=== PATIENT | male | born 1975 | race Caucasian/White ===

== ENCOUNTER 2018-12-23 07:01 | Outpatient (CLI) | payer OTHER, SELFPAY ==
[2018-12-23 08:29] LABS: ALT 33 U/L (16-63); AST 16 U/L (15-37); Albumin 4.2 g/dL (3.4-5.0); Alkaline Phosphatase 52 U/L (46-116); BUN 20 mg/dL (7-18); Bilirubin, Total 0.6 mg/dL (0.2-1.0); CREATININE 0.99 mg/dL (0.70-1.30); Calcium 9.6 mg/dL (8.5-10.1); Calculated LDL 166 mg/dL; Chloride 103 mmol/L (98-107); Cholesterol 226 mg/dL (50-200); Glucose 102 mg/dL (70-100); HDL Cholesterol 45 mg/dL (40-60); Potassium 4.5 mmol/L (3.5-5.1); Sodium 140 mmol/L (136-145); Total Protein 7.7 g/dL (6.4-8.2); Triglyceride 78 mg/dL (30-150)
== END 2018-12-23 07:21 ==
PROVIDERS: PCP Nurse Practitioner; Visit Provider Nurse Practitioner
DX: I10 Essential (primary) hypertension (principal)
CPT/HCPCS: 36415; 80053; 80061

== ENCOUNTER 2020-05-13 01:44 | Outpatient (CLI) | payer BC, SELFPAY ==
[2020-05-13 12:44] LABS: ALT 46 U/L (16-63); AST 28 U/L (15-37); Albumin 4.5 g/dL (3.4-5.0); Alkaline Phosphatase 50 U/L (46-116); Anion Gap 6.3 mmol/L (3-11); BUN 13 mg/dL (7-18); Bilirubin, Total 1.5 mg/dL (0.2-1.0); CO2 28.7 mmol/L (21.0-32.0); CREATININE 1.1 mg/dL (0.70-1.30); Calcium 9.5 mg/dL (8.5-10.1); Calculated LDL 171 mg/dL (<100); Chloride 101 mmol/L (98-107); Cholesterol 238 mg/dL (<200); Glucose 96 mg/dL (74-106); HDL Cholesterol 48 mg/dL (40-60); Potassium 4.1 mmol/L (3.5-5.1); Sodium 136 mmol/L (136-145); Total Protein 8.2 g/dL (6.4-8.2); Triglyceride 96 mg/dL (<150)
== END 2020-05-13 01:45 | disposition home or self-care (01) ==
LOC: LOS 01:44
PROVIDERS: PCP Nurse Practitioner; Visit Provider Nurse Practitioner
DX: I10 Essential (primary) hypertension (principal)
CPT/HCPCS: 36415; 80053; 80061

== ENCOUNTER 2020-07-28 07:23 | Outpatient (CLI) | payer BC, SELFPAY ==
[2020-07-28 11:34] LABS: Bilirubin, Total 1.2 mg/dL (0.2-1.0)
== END 2020-07-28 07:24 | disposition home or self-care (01) ==
PROVIDERS: Nurse Practitioner Adult Health; PCP Nurse Practitioner; Visit Provider Nurse Practitioner
DX: E80.6 Other disorders of bilirubin metabolism (principal)
CPT/HCPCS: 36415; 82247

== ENCOUNTER 2021-04-05 02:23 | Outpatient (CLI) | payer BC, SELFPAY ==
[2021-04-05 08:28] LABS: HCT 47.6 % (40.0-50.0); HGB 15.7 g/dL (13.5-17.5); MCH 28.3 pg (27.0-33.0); MCV 85.9 fL (80-95); MPV 9.9 fL (8.0-11.0); Platelet Count 251 10^3/uL (130-400); RBC 5.54 10^6/uL (4.36-5.78); RDW 12.7 % (11.8-14.1); RDW-SD 39.6 fL; WBC 6.11 10^3/uL (4.4-10.8)
[2021-04-05 09:12] LABS: ALT 39 U/L (16-63); AST 20 U/L (15-37); Alkaline Phosphatase 50 U/L (46-116); Anion Gap 8.1 mmol/L (3-11); BUN 12 mg/dL (7-18); Bilirubin, Total 1.1 mg/dL (0.2-1.0); CO2 28.9 mmol/L (21.0-32.0); CREATININE 0.9 mg/dL (0.70-1.30); Calcium 9.1 mg/dL (8.5-10.1); Calculated LDL 165 mg/dL (<100); Chloride 102 mmol/L (98-107); Cholesterol 235 mg/dL (<200); Glucose 96 mg/dL (74-106); HDL Cholesterol 54 mg/dL (40-60); Potassium 4.5 mmol/L (3.5-5.1); Sodium 139 mmol/L (136-145); Total Protein 7.5 g/dL (6.4-8.2); Triglyceride 84 mg/dL (<150)
[2021-04-05 09:16] LABS: Hemoglobin A1C 5.8 % (<5.7)
== END 2021-04-05 02:24 | disposition home or self-care (01) ==
LOC: LBO 02:23
PROVIDERS: PCP Nurse Practitioner; Visit Provider Nurse Practitioner
DX: E66.9 Obesity, unspecified (principal); E78.5 Hyperlipidemia, unspecified; I10 Essential (primary) hypertension; Z00.00 Encounter for general adult medical examination without abnormal findings
CPT/HCPCS: 36415; 80053; 80061; 85027; 83036

== ENCOUNTER 2021-07-05 02:50 | Outpatient (CLI) | payer BC, SELFPAY ==
[2021-07-05 13:12] LABS: Bilirubin, Direct 0.2 mg/dL (0.0-0.2); Calculated LDL 167 mg/dL (<100); Cholesterol 239 mg/dL (<200); HDL Cholesterol 53 mg/dL (40-60); Triglyceride 97 mg/dL (<150)
[2021-07-05 13:16] LABS: Hemoglobin A1C 5.7 % (<5.7)
== END 2021-07-05 02:51 | disposition home or self-care (01) ==
LOC: LOS 03:17
PROVIDERS: PCP Nurse Practitioner; Visit Provider Nurse Practitioner
DX: R73.09 Other abnormal glucose (principal); E78.5 Hyperlipidemia, unspecified; R17 Unspecified jaundice
CPT/HCPCS: 36415; 80061; 82248; 83036

== ENCOUNTER 2022-03-12 11:15 | Day surgery (SDC) | payer BC, SELFPAY ==
[2022-03-12 11:20] VITALS: BP 153/117; PULSE 91; RESP 18; TEMP 36.3; O2SAT 98
[2022-03-12] MEDS: Lactated Ringers 1,000 ML 80 ML IV (12:04)
[2022-03-12 12:05] VITALS: BP 135/87
--- NOTE | 2022-03-12 12:10 | W.ANESPRE ---
General Info Date of Service Date Performed: 03/12/22 Height: 5 ft 8 in Weight: 120.656 kg Body Mass Index (BMI): 40.4 Surgical Procedure: Operation Date: 03/12/22 12:05 Proposed Procedure Side Surgeon romina Arroyo MD Meds Allergies and Home Medications Allergies Allergy/AdvReac Type Severity Reaction Status Date / Time No Known Allergies Allergy Verified 03/12/22 11:55 Home Medication Medication Instructions Recorded lisinopril 20 mg tablet 20 mg PO DAILY #90 tabs 01/15/22 bisacodyl 5 mg tablet,delayed 5 mg PO ONCE #4 tabs 03/01/22 release (Dulcolax (bisacodyl)) polyethylene glycol 3350 17 17 g PO ONCE #238 grams 03/01/22 gram/dose oral powder Current Visit Medications: Current Medications Generic Name Dose Route Start Last Admin Trade Name Freq PRN Reason Stop Dose Admin Ringer's Solution 1,000 mls @ 80 mls/hr 03/12/22 06:00 03/12/22 12:04 IV 04/08/22 23:59 80 mls/hr INFUSION RUPERTO Administration IV Miscellaneous Supplies 1 each 03/12/22 06:00 Iv Access IV 04/08/22 23:59 DIRECTED RUPERTO Sodium Chloride 0 ml 03/12/22 06:00 Normal Saline Flush 10 Ml Syr IV 04/08/22 23:59 PRN PRN Sodium Chloride 0 ml 03/12/22 06:00 Normal Saline 10 Ml Vial IJ 04/08/22 23:59 DIRECTED PRN Sterile Water 0 ml 03/12/22 06:00 Water,Injection,Sterile 10 Ml Vial IJ 04/08/22 23:59 DIRECTED PRN PFSH Active Problems Active Problems: Problem Status Onset Code Screening for colon cancer Z12.11 Hyperlipidemia E78.5 Elevated bilirubin R17 Routine medical exam Z00.00 Obesity, Class III, BMI 40-49.9 (morbid obesity) E66.01 Hypertension I10 Tobacco use disorder 11/23/13 F17.200 Obesity (BMI 30.0-34.9) 04/18/15 E66.9 Essential hypertension 12/06/11 I10 Surgical History Surgical History Tonsillectomy and adenoidectomy Tobacco Smoking/Tobacco Use Status: Former Tobacco Use Passive smoking exposure: No Second hand exposure: No Alcohol Alcohol Intake: never Substance Use Substance use: Never Substance use type: does not use Vital Signs and Lab Results Vital Signs Most Recent Vital Signs in EMR: Most Recent Vital Signs Temp Pulse Resp BP Pulse Ox 36.3 C L 91 H 18 135/87 98 03/12/22 11:20 03/12/22 11:20 03/12/22 11:20 03/12/22 12:05 03/12/22 11:20 Lab Results Blood Type / Crossmatch: No Data to Display Complete Blood Count: No Data to Display Complete Metabolic Panel: No Data to Display Liver Function Panel: No Data to Display Coagulation Panel: No Data to Display Cardiac Panel: No Data to Display Arterial Blood Gas: No Data to Display Venous Blood Gas: No Data to Display Pancreas Panel: No Data to Display Thyroid Panel: No Data to Display Infectious Disease: No Data to Display Blood Cultures: No Data to Display Toxicology Panel: No Data to Display Anesthesia Assessment and Plan Anesthesia History Personal History: No History of Anesthesia Complications Family History: No Family History of Anesthesia Complications Exercise Tolerance Exercise Tolerance: Metabolic Equivalents>4 Pertinent Negatives Pertinent Negatives: No Symptoms of GERD, No Major Cardiovascular Symptoms or Complaints and No Major Pulmonary Symptoms or Complaints Cardiac & Pulmonary Exam Cardiac Exam: Normal S1/S2 Heart Sounds Pulmonary Exam: Clear Bilateral Breath Sounds Implantable Cardiac Device Does patient have a Pacemaker or an ICD?: No Airway Exam Known Difficult Airway: No Mallampati Class: 2 Mouth Opening: Normal (> 3cm) Thyromental Distance: Greater than 3 cm Neck Range of Motion: Full ROM Neck Circumference: Normal Teeth Condition: Generalized Poor Dentition ASA Classification ASA Score: ASA 3 Emergency Case?: No NPO Status NPO Status: NPO Clears >2 hours, Solids >8 hours Anesthesia Plan Resuscitation Status: Full Code Anesthesia Technique: General Anesthesia Airway Planned: Natural Airway Monitors Used: Standard Monitors
[2022-03-12 12:12] VITALS: BMI 40.4
--- NOTE | 2022-03-12 12:43 | BOWEL_PTH ---
PATIENT: Jose G Jean LOC: NAT U#:[id number] AGE/SX: 47/M ROOM: RE03/12/[address]: Gustabo Arroyo : 1975 BED: DIS: 03/12/2022 SPEC #: [id number] RECD: 03/12/22 17:15 STATUS: TIFFANIE REJarrett #: [id number] CAROLINE: 03/12/22 12:[address]: Gusatbo Arroyo DEPT: Surgical Specimen RECD BY: Sriena Saucedo ENTERED: 03/12/22 17:15 SP TYPE: Bowel OTHR DR: Jeimy Calhoun APRN Tissues: 1 - BIOPSY BOWEL 2 - BIOPSY BOWEL Procedures: GROSS AND MICRO LEVEL 4 Comments: [id number]
--- NOTE | 2022-03-12 12:49 | W.COLOREPORT ---
Date of service: 03/12/22 Time of Service: 12:49 Colonoscopy Report Procedure Description: Procedures performed: 1. Colonoscopy with cold forceps polypectomy x1 2. Snare polypectomy x2 Preoperative diagnosis: Screening colonoscopy Postoperative diagnosis: Colon polyps, grade 1 internal hemorrhoids Surgeon: Saleem Arroyo Anesthesia: Fabiola Indication for procedure: 47-year-old man without any symptoms and no family history of colon cancer and he has never had a prior colonoscopy. Findings: In the transverse colon a 3-5 mm sessile polyp was removed with hot snare technique. Further along in the descending colon another 3-5 mm sessile polyp was removed with hot snare technique (a specimen was not recovered) and in the rectum a small 2-3 mm sessile polyp was removed with cold forceps technique. There is mild grade 1 internal hemorrhoids. I did not appreciate any diverticular disease though the sigmoid colon appeared somewhat fibrotic. Surveillance/follow-up recommendations: 3-10 years. (Sessile serrated/villous histology warrants 3 years, simple tubular adenomas warrant 7-10 years, hyperplastic histology warrants 10-years) Complications: None Blood loss: Minimal Prep: Excellent Procedure in detail: Written consent was obtained from the patient who was in agreement with the risks, benefits and indications of the procedure.? We went to the endoscopy suite and laid the patient in left lateral decubitus position.? Anesthesia was administered which was tolerated well.? A timeout was performed and when we are all in agreement we began the procedure. Digital rectal exam and visual examination was performed and within normal limits.? A well?lubricated colonoscope was advanced without difficulty all the way to the cecum identified by the ileocecal valve, and triangular folds and appendiceal orifice.? It was then slowly withdrawn.?? Retroflexion was performed in the rectum.? The findings/interventions are noted above. The scope was then removed and the patient tolerated the procedure well and was then taken back to the PACU in hemodynamically stable condition.
[2022-03-12 12:53] VITALS: BP 120/100; PULSE 91; RESP 16; TEMP 36.5; O2SAT 97
--- NOTE | 2022-03-12 12:59 | W.ANESPOSTOP ---
Postoperative Evaluation Date, Time and Location Date Performed: 03/12/22 Time Performed: 13:00 Patient Location: Day Surgery Unit Vital Signs Most Recent Imported Vital Signs: Most Recent Vital Signs Temp Pulse Resp BP Pulse Ox 36.3 C L 91 H 18 135/87 98 03/12/22 11:20 03/12/22 11:20 03/12/22 11:20 03/12/22 12:05 03/12/22 11:20 Pain Score Most Recent Pain Score: Most Recent Pain Score Pain Level 0 03/12/22 11:20 Assessment Mental Status: Awake (Alert & Oriented to Patient Baseline) Airway and Respiratory Function: Patent airway with normal (patient baseline) respiratory exam Cardiovascular Function: Hemodynamically Stable Hydration Status: Adequately Hydrated Nausea & Vomiting: No Nausea or Vomiting Pain: Pt. Denies Any Pain Peripheral Nerve Block: Patient did not receive a nerve block
[2022-03-12 13:00] VITALS: O2SAT 98
[2022-03-12 13:29] VITALS: BP 123/79; PULSE 79; RESP 18; TEMP 36.7; O2SAT 96
== END 2022-03-12 13:45 | disposition home or self-care (01) ==
PROVIDERS: PCP Nurse Practitioner; Visit Provider Student in an Organized Health Care Education/Training Program
PROC: 0DJD8ZZ Inspection of Lower Intestinal Tract, Via Natural or Artificial Opening Endoscopic (ICD-10-PCS; CPT 45378; principal; 2022-03-12 12:00)
DX: Z12.11 Encounter for screening for malignant neoplasm of colon (principal); K63.5 Polyp of colon; K64.0 First degree hemorrhoids; K62.1 Rectal polyp
CPT/HCPCS: 45385; 45380; 88305

== ENCOUNTER 2022-04-19 03:41 | Outpatient (CLI) | payer BC, SELFPAY ==
[2022-04-19 12:38] LABS: Hemoglobin A1C 5.6 % (<5.7)
[2022-04-19 12:41] LABS: ALT 36 U/L (16-63); AST 20 U/L (15-37); Albumin 4.2 g/dL (3.4-5.0); Alkaline Phosphatase 53 U/L (46-116); Anion Gap 7.3 mmol/L (3-11); BUN 18 mg/dL (7-18); CO2 29.7 mmol/L (21.0-32.0); Calcium 9.7 mg/dL (8.5-10.1); Calculated LDL 167 mg/dL (<100); Chloride 103 mmol/L (98-107); Cholesterol 242 mg/dL (<200); Estimated GFR 93.42 (mL/min/1.73m2); Glucose 96 mg/dL (74-106); HDL Cholesterol 51 mg/dL (40-60); Potassium 4.2 mmol/L (3.5-5.1); Sodium 140 mmol/L (136-145); Total Protein 7.9 g/dL (6.4-8.2); Triglyceride 121 mg/dL (<150)
== END 2022-04-19 03:42 | disposition home or self-care (01) ==
LOC: LOS 03:43
PROVIDERS: PCP Nurse Practitioner; Visit Provider Nurse Practitioner
DX: E78.5 Hyperlipidemia, unspecified (principal); I10 Essential (primary) hypertension; R73.03 Prediabetes
CPT/HCPCS: 36415; 80053; 80061; 83036

== ENCOUNTER 2023-05-29 05:42 | Outpatient (CLI) | payer BC, SELFPAY ==
[2023-05-29 13:35] LABS: ALT 31 U/L (16-63); AST 22 U/L (15-37); Albumin 4.1 g/dL (3.4-5.0); Alkaline Phosphatase 54 U/L (46-116); Anion Gap 10.9 mmol/L (3-11); BUN 19 mg/dL (7-18); Bilirubin, Total 1.2 mg/dL (0.2-1.0); CO2 27.1 mmol/L (21.0-32.0); CREATININE 1.1 mg/dL (0.70-1.30); Calcium 9.2 mg/dL (8.5-10.1); Calculated LDL 171 mg/dL (<100); Chloride 103 mmol/L (98-107); Cholesterol 235 mg/dL (<200); Estimated GFR 82.81 (mL/min/1.73m2); Glucose 100 mg/dL (74-106); HDL Cholesterol 49 mg/dL (40-60); Potassium 4.8 mmol/L (3.5-5.1); Sodium 141 mmol/L (136-145); Total Protein 7.7 g/dL (6.4-8.2); Triglyceride 76 mg/dL (<150)
== END 2023-05-29 05:43 | disposition home or self-care (01) ==
LOC: LOS 05:42
PROVIDERS: PCP Nurse Practitioner; Visit Provider Nurse Practitioner
DX: E78.5 Hyperlipidemia, unspecified (principal); I10 Essential (primary) hypertension
CPT/HCPCS: 36415; 80053; 80061

== ENCOUNTER 2024-10-16 17:50 | Outpatient (CLI) | payer BC, SELFPAY ==
[2024-10-16 16:45] LABS: Abs Immature Grans 0.01 10^3/uL (0.0-0.06); HCT 46.9 % (40.0-50.0); HGB 15.6 g/dL (13.5-17.5); Immature Grans % 0.1 %; MCH 28.1 pg (27.0-33.0); MCHC 33.3 % (32.0-36.0); MCV 85 fL (80-95); MPV 10.3 fL (8.0-11.0); Platelet Count 228 10^3/uL (130-400); RBC 5.55 10^6/uL (4.36-5.78); RDW 12.8 % (11.8-14.1); RDW-SD 39.3 fL; WBC 7.67 10^3/uL (4.4-10.8)
[2024-10-16 16:57] LABS: Glucose Negative (Negative)
[2024-10-16 17:48] LABS: ALT 48 U/L (16-63); AST 32 U/L (15-37); Albumin 4.0 g/dL (3.4-5.0); Alkaline Phosphatase 61 U/L (46-116); Anion Gap 5.4 mmol/L (3-11); BUN 15 mg/dL (7-18); Bilirubin, Total 1.1 mg/dL (0.2-1.0); CO2 33.6 mmol/L (21.0-32.0); Calcium 9.4 mg/dL (8.5-10.1); Calculated LDL 60 mg/dL (<100); Chloride 101 mmol/L (98-107); Cholesterol 133 mg/dL (<200); Estimated GFR 104.70 (mL/min/1.73m2); Glucose 95 mg/dL (74-106); HDL Cholesterol 41 mg/dL (>or=40); Potassium 3.4 mmol/L (3.5-5.1); Sodium 140 mmol/L (136-145); TSH 3.35 uIU/mL (0.36-3.74); Total Protein 7.4 g/dL (6.4-8.2); Triglyceride 164 mg/dL (<150)
[2024-10-19 08:58] LABS: PSA, Screening 1.0 ng/mL (<=2.5)
== END 2024-10-16 17:51 | disposition home or self-care (01) ==
LOC: LBO 17:51
PROVIDERS: PCP Nurse Practitioner; Visit Provider Family Medicine
DX: Z13.9 Encounter for screening, unspecified (principal); R53.83 Other fatigue; Z12.5 Encounter for screening for malignant neoplasm of prostate; I10 Essential (primary) hypertension
CPT/HCPCS: 36415; 80053; 80061; 84153; 81003; 84443; 85025